=== PATIENT | female | born 1975 | race Caucasian/White ===

== ENCOUNTER → 2016-11-29 | Outpatient (CLI) | payer OTHER ==
[~2016-11-29] MED LIST: FEXO1TAB31; LEXAPRO20 MG PO
--- NOTE | 2016-11-29 15:41 | RAD ---
Left knee, 3 views, 11/29/2016: History: Knee pain No fracture or dislocation is identified. There is minimal marginal spurring medially and at the patellofemoral articulation. No joint effusion is evident. IMPRESSION: No acute left knee abnormality is detected.
== END | disposition home or self-care (01) ==
LOC: DXRADRC 14:49
PROVIDERS: ATTEND Physician Assistant Medical
DX: M25.562 Pain in left knee (principal)
CPT/HCPCS: 73562

== ENCOUNTER → 2018-02-10 | Outpatient (CLI) | payer OTHER ==
--- NOTE | 2018-02-10 16:42 | RAD ---
Lumbar spine, 5 views, 02/10/2018: HISTORY: Back pain The lumbar vertebral heights are well-maintained. The intervertebral disc spaces are well preserved. There are mild scattered marginal spurs. No fracture or dislocation is identified. There are mild sclerotic changes involving the facet joints at L5-S1. The paraspinous soft tissues are unremarkable. IMPRESSION: 1. Mild scattered degenerative changes. 2. No acute bony abnormality is detected. Sacrococcygeal spine, 02/10/2018: No fracture or destructive bony lesion is seen. 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 IMPRESSION: 1. Osteitis condensans ilii. 2. No sacral abnormality is detected. Electronically signed by: Kj Perea MD (02/10/2018 4:39 PM) [facility]
== END | disposition home or self-care (01) ==
LOC: DXRAD 12:53
PROVIDERS: ATTEND Physician Assistant Medical
DX: M51.36 Other intervertebral disc degeneration, lumbar region (principal); M46.06 Spinal enthesopathy, lumbar region; M85.38 Osteitis condensans, other site
CPT/HCPCS: 72110; 72220

== ENCOUNTER → 2020-02-12 | Outpatient (CLI) | payer OTHER ==
--- NOTE | 2020-02-12 10:24 | RAD ---
EXAM: Abdomen, 2 views. HISTORY: Pain. COMPARISON: None. FINDINGS: 2 views of the abdomen are obtained. There is no evidence of bowel obstruction. There is stool within the colon. There is no free air. There are foreign bodies overlying the left lower quadrant which are external to the patient and not seen on a repeat image. IMPRESSION: Nonobstructive bowel gas pattern. Electronically signed by: Lashon Bassett MD (02/12/2020 10:21 AM) [id number]
== END ==
LOC: PMG 09:49
PROVIDERS: ATTEND Family Medicine
DX: R10.9 Unspecified abdominal pain (principal)
CPT/HCPCS: 74019

== ENCOUNTER → 2021-08-08 | Outpatient (CLI) | payer OTHER ==
--- NOTE | 2021-08-08 12:35 | RAD ---
EXAMINATION: XR SHOULDER_LEFT 2+ VIEWS CLINICAL HISTORY: LEFT SHOULDER PAIN, NKI. TECHNIQUE: XR SHOULDER_LEFT 2+ VIEWS Number of Images/Views: 4 COMPARISON: None FINDINGS: Glenohumeral and acromioclavicular joints maintained. Nonspecific tiny corticated ossicle along the i nferior glenoid, possibly a joint body or related to remote trauma. No acute fracture. IMPRESSION: No acute osseous abnormality. Electronically signed by: Greg Calvert DO (08/08/2021 12:32 PM) [id number]
== END ==
LOC: RAD 09:15
PROVIDERS: ATTEND Physician Assistant Medical
DX: M25.512 Pain in left shoulder (principal)
CPT/HCPCS: 73030

== ENCOUNTER → 2021-09-18 | Outpatient (CLI) | payer OTHER ==
--- NOTE | 2021-09-19 15:59 | RAD ---
XR CHEST 2V History: Cough/short of air. Comparison: 09/03/18. Technique: PA and lateral chest radiographs. Findings: The lungs are adequately and symmectrically inflated. No airspace consolidation, pleural effusion or pneumothorax. The cardiomediastinal silhoutte and pulmonary vasculature are within normal limits. Sof t tissues and osseous structures are unremarkable. Impression: 1. No acute cardiopulmonary process. Electronically signed by: Xu Capone MD (09/19/2021 12:37 PM) [id number]
== END ==
LOC: RAD 08:42
PROVIDERS: ATTEND Physician Assistant Medical
DX: R05.3 Chronic cough (principal)
CPT/HCPCS: 71046